=== PATIENT | female | born 1995 | race African-American/Black ===

== ENCOUNTER 2025-05-29 11:19 | Emergency (ER) | payer OTHER ==
[~2025-05-29] VITALS: Ht 165.1 cm; Wt 100.2 kg
[2025-05-29 11:50] VITALS: PULSE 84; RESP 16; TEMP 98.2; O2SAT 100
== END 2025-05-29 12:35 | disposition home or self-care (01) ==
LOC: ER 12:03
DX: O26.892 Other specified pregnancy related conditions, second trimester (principal); K42.9 Umbilical hernia without obstruction or gangrene
CPT/HCPCS: 99282